=== PATIENT | male | born 1950 | race Caucasian/White ===

== ENCOUNTER → 2017-04-22 | Outpatient (CLI) | payer OTHER | LOC: CARD 12:07 | PROVIDERS: ATTEND Internal Medicine Cardiovascular Disease | DX: I49.5 Sick sinus syndrome (principal); I10 Essential (primary) hypertension; E11.9 Type 2 diabetes mellitus without complications; R55 Syncope and collapse | CPT/HCPCS: 93225; 93226 ==

== ENCOUNTER → 2017-07-01 | Outpatient (CLI) | payer OTHER | LOC: CARD 12:23 → EDUNIT# 14:00 | PROVIDERS: ATTEND Internal Medicine Cardiovascular Disease | DX: R00.1 Bradycardia, unspecified (principal); I10 Essential (primary) hypertension; I49.5 Sick sinus syndrome; R55 Syncope and collapse; E11.9 Type 2 diabetes mellitus without complications; Z79.4 Long term (current) use of insulin | CPT/HCPCS: 93017; 93306 ==

== ENCOUNTER → 2017-08-12 | Outpatient (CLI) | payer OTHER ==
[~2017-08-12] VITALS: Ht 177.8 cm; Wt 83.9 kg
[~2017-08-12] MED LIST: CATHETER FLUSH 10 ML SYR IV PRN
[2017-08-12 13:39] VITALS: BP 141/69
[2017-08-12 13:43] VITALS: BP 159/46
[2017-08-12 13:47] VITALS: BP 191/55
[2017-08-12 13:49] VITALS: BP 200/51
[2017-08-12 13:51] VITALS: BP 170/67
[2017-08-12 13:56] VITALS: BP 141/87
--- NOTE | 2017-08-13 14:18 | STRESS TEST ---
DATE OF SERVICE: 08/12/2017 EXERCISE MYOVIEW STRESS TEST REFERRING PHYSICIAN: None. Baseline heart rate is 63. Baseline blood pressure 159/46. Baseline EKG is sinus rhythm with no ischemic changes. In summary, the patient started exercising with a baseline heart rate, blood pressure and EKG mentioned above. At minute 5, he was injected with 30.2 mCi of technetium-99 Myoview. The patient had [address] depression in II, III, aVF, V4, V5 and V6. He was able to exercise for a total of 6 minutes on standard Yoan protocol. With peak exercise level, the patient was having [address] depression in lead 3 and AVF, slightly upsloping in lead 2, [address] depression in V3, V4, V5 and V6. Blood pressure was 191/55. During recovery, heart rate and blood pressure returned to baseline. EKG returned to baseline. The resting and stress images were reviewed and compared in the short axis, horizontal long axis, and vertical long axis views. Review of the images showed diaphragmatic attenuation with mild decreased uptake at the mid to apical inferior wall and inferolateral wall with subtle reversibility. SSS is 4, SDS zero. TID value 0.84. On the gated images, the left ventricle appeared to be normal in size with normal contractility. Calculated ejection fraction 63%. CONCLUSION: 1. Fair exercise tolerance a total of 6 minutes on standard Yoan protocol, a total of 7.1 METS achieving 88% of maximum expected heart rate. 2. Severe hypertensive response to exercise, returned to baseline. During recovery achieved maximum blood pressure of 200/51. 3. Positive exercise stress test by EKG findings suggestive of ischemia. 4. Diaphragmatic attenuation with nondiagnostic SPECT images with decreased uptake involving the mid to apical inferior wall and inferolateral wall with subtle reversibility. 5. Normal left ventricular size with normal contractility. Calculated ejection fraction 63%. Job ID: [id number] DocumentID: [id number] Dictated Date: 08/13/2017 08:01:58 Paralegal Supervisor Date: 08/13/2017 10:41:31 Dictated By: MIKE DORANTES MD
== END ==
LOC: RAD 11:39
PROVIDERS: ATTEND Physician Assistant
DX: I10 Essential (primary) hypertension (principal); E11.9 Type 2 diabetes mellitus without complications; I49.5 Sick sinus syndrome; R55 Syncope and collapse
CPT/HCPCS: 78452; 93017

== ENCOUNTER 2022-08-16 16:19 | Inpatient (IN) | payer OTHER, MEDICARE ==
[~2022-08-16] VITALS: Ht 182 cm; Wt 87.2 kg
--- NOTE | 2022-08-16 16:44 | ED General ---
General Chief Complaint: Glucose Problems Stated Complaint: HIGH BLOOD SUGAR/WEAKNESS Nursing Triage Note: ARRIVED VIA AMB TO TRIAGE WITH HIGH BLOOD SUGARS AND VOMITING. HAS BEEN OUT OF HIS INSULIN X2 DAYS. Source of Information: Patient, Family Exam Limitations: No Limitations History of Present Illness Date Seen by Provider: Aug 16, 2022 Time Seen by Provider: 16:23 Initial Comments Patient to the ER by private conveyance with his and chief complaint of high blood sugar for the past 1 day, nausea vomiting dehydration for the past 2 days. He thinks he has flu. He says he does not normally have vomiting. He is never been in DKA. He is a diabetic type II on Novolin 20 units with meals and Levemir 20 units at night. [facility] but apparently they sent it to the pharmacy to be picked up in [place] so he still does not have it. He has a family member who has diabetes so he used some of their NovoLog 30 units initially followed by 50 units before coming in and stated that it read 599 on their last use. Nursing reports in the high 500s. He is urinating frequently. He has not had any fevers chills. He has not had any chest pain but he does report having muscle aches and reflux and sore throat from all the vomiting. He has a pertinent history of coronary artery disease with LAD stent by [facility] in [place]. He follows with the [facility] for primary care. His last hemoglobin A1c was around 7. No history of kidney disease. Allergies and Home Medications Allergies Coded Allergies: Penicillins (Unverified Allergy, Unknown, 08/12/17) acetaminophen (Unverified Allergy, Unknown, 08/12/17) oxycodone (Unverified Allergy, Unknown, 08/12/17) Patient Home Medication List Home Medication List Reviewed: Yes Review of Systems Review of Systems Constitutional: No chills, No diaphoresis EENTM: No ear discharge, No ear pain Respiratory: No cough, No short of breath Cardiovascular: No chest pain, No edema; Hx of Intervention; No palpitations, No syncope Gastrointestinal: No abdominal pain, No diarrhea, No loss of appetite, No melena; nausea, vomiting Genitourinary: No discharge, No dysuria Musculoskeletal: No back pain, No joint pain All Other Systems Reviewed Negative Unless Noted: Yes Past Hamhhga-Qxlarz-Gnmgey Hx Patient Social History Tobacco Use?: No Substance use?: No Alcohol Use?: No Immunizations Up To Date First/Initial COVID19 Vaccinat: UNKNOWN Physical Exam Vital Signs Vital Signs - First Documented 08/16/22 16:30 Temp 37.0 Pulse 110 Resp 16 B/P (MAP) 102/64 (77) Pulse Ox 96 O2 Delivery Room Air Capillary Refill : Less Than 3 Seconds Height, Weight, BMI Height: 5'10.00" Weight: 185lbs. 0.0oz. 83.806778bo; 23.00 BMI Method: General Appearance: No Apparent Distress, Mild Distress Eyes: Bilateral Eye Normal Inspection, Bilateral Eye PERRL, Bilateral Eye EOMI HEENT: PERRL/EOMI, TMs Normal, Normal ENT Inspection, Pharynx Normal, Moist Mucous Membranes Neck: Full Range of Motion, Normal Inspection, Non Tender, Supple Respiratory: Lungs Clear, Normal Breath Sounds, No Accessory Muscle Use, No Respiratory Distress Cardiovascular: Regular Rate, Rhythm, No Edema, Normal Peripheral Pulses Gastrointestinal: Normal Bowel Sounds, Non Tender, Soft Extremity: Normal Capillary Refill, Normal Inspection, No Pedal Edema Neurologic/Psychiatric: Alert, Oriented x3, No Motor/Sensory Deficits, Normal 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, 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 Norm as Tested Skin: Normal Color, Warm/Dry Progress/Results/Core Measures Suspected Sepsis SIRS Temperature: Pulse: 110 Respiratory Rate: 16 Laboratory Tests 08/16/22 16:35: White Blood Count 23.9H Blood Pressure 102 /64 Mean: 77 Laboratory Tests 08/16/22 16:35: Creatinine 3.01H, INR Comment 1.0, Platelet Count 435H, Total Bilirubin 0.5 Results/Orders Lab Results Laboratory Tests Test 08/16/22 16:28 08/16/22 16:30 08/16/22 16:35 Range/Units Glucometer 562 *H 70-110 MG/DL Influenza Type A (RT-PCR) Not Detected Not Detecte Influenza Type B (RT-PCR) Not Detected Not Detecte SARS-CoV-2 RNA (RT-PCR) Not Detected Not Detecte White Blood Count 23.9 H 4.3-11.0 10^3/uL Red Blood Count 5.17 4.30-5.52 10^6/uL Hemoglobin 15.3 13.3-17.7 g/dL Hematocrit 46 40-54 % Mean Corpuscular Volume 88 80-99 fL Mean Corpuscular Hemoglobin 30 25-34 pg Mean Corpuscular Hemoglobin Concent 34 32-36 g/dL Red Cell Distribution Width 13.2 10.0-14.5 % Platelet Count 435 H 130-400 10^3/uL Mean Platelet Volume 9.0 9.0-12.2 fL Immature Granulocyte % (Auto) 1 % Neutrophils (%) (Auto) 87 H 42-75 % Lymphocytes (%) (Auto) 4 L 12-44 % Monocytes (%) (Auto) 8 0-12 % Eosinophils (%) (Auto) 0 0-10 % Basophils (%) (Auto) 0 0-10 % Neutrophils # (Auto) 20.8 H 1.8-7.8 10^3/uL Lymphocytes # (Auto) 0.9 L 1.0-4.0 10^3/uL Monocytes # (Auto) 1.9 H 0.0-1.0 10^3/uL Eosinophils # (Auto) 0.0 0.0-0.3 10^3/uL Basophils # (Auto) 0.1 0.0-0.1 10^3/uL Immature Granulocyte # (Auto) 0.2 H 0.0-0.1 10^3/uL Neutrophils % (Manual) 90 % Lymphocytes % (Manual) 2 % Monocytes % (Manual) 5 % Reactive Lymphocytes 3 % Blood Morphology Comment NORMAL Prothrombin Time 13.0 12.2-14.7 SEC INR Comment 1.0 0.8-1.4 Activated Partial Thromboplast Time 34 24-35 SEC Sodium Level 137 135-145 MMOL/L Potassium Level 3.9 3.6-5.0 MMOL/L Chloride Level 103 98-107 MMOL/L Carbon Dioxide Level 18 L 21-32 MMOL/L Anion Gap 16 H 5-14 MMOL/L Blood Urea Nitrogen 61 H 7-18 MG/DL Creatinine 3.01 H 0.60-1.30 MG/DL Estimat Glomerular Filtration Rate 22 BUN/Creatinine Ratio 20 Glucose Level 678 *H 70-105 MG/DL Calcium Level 10.1 8.5-10.1 MG/DL Corrected Calcium 9.8 8.5-10.1 MG/DL Magnesium Level 3.3 H 1.6-2.4 MG/DL Total Bilirubin 0.5 0.1-1.0 MG/DL Aspartate Amino Transf (AST/SGOT) 53 H 5-34 U/L Alanine Aminotransferase (ALT/SGPT) 31 0-55 U/L Alkaline Phosphatase 119 40-136 U/L Troponin I 9.664 *H <0.028 NG/ML C-Reactive Protein High Sensitivity 10.66 H 0.00-0.50 MG/DL Total Protein 7.6 6.4-8.2 GM/DL Albumin 4.4 3.2-4.5 GM/DL Beta-Hydroxybutyrate (Chem panel) 1.25 H 0.00-0.27 MMOL/L My Orders Orders - RAUL WHITE Accucheck Stat ONCE (08/16/22 16:28) Ua Culture If Indicated (08/16/22 16:28) Continuous Ekg Monitoring (08/16/22 16:41) Troponin I Kidder (08/16/22 16:41) Cbc With Automated Diff (08/16/22 16:41) Comprehensive Metabolic Panel (08/16/22 16:41) Hs C Reactive Protein (08/16/22 16:41) Magnesium (08/16/22 16:41) Ed Iv/Invasive Line Start (08/16/22 16:41) Ns Iv 1000 Ml (Sodium Chloride 0.9%) (08/16/22 16:45) Pantoprazole Injection (Protonix Injecti (08/16/22 16:45) Ondansetron Injection (Zofran Injectio (08/16/22 16:45) Covid 19 Inhouse Test (08/16/22 16:45) Influenza A And B By Pcr (08/16/22 16:45) Aspirin Chewable Tablet (Baby Aspirin Ch (08/16/22 16:45) Manual Differential (08/16/22 16:35) Beta Hydroxybutyrate (08/16/22 16:49) Ed Iv/Invasive Line Start (08/16/22 17:10) Ns Iv 1000 Ml (Sodium Chloride 0.9%) (08/16/22 17:15) Continuous Ekg Monitoring (08/16/22 17:27) Ekg Tracing (08/16/22 17:27) Chest 1 View, Ap/Pa Only (08/16/22 17:40) Heparin Drip 62884 Unit/500ml (Heparin (08/16/22 17:45) Heparin (Bolus Per Protocol) (Heparin (B (08/16/22 17:45) Initiate Heparin Acs Protocol (08/16/22 17:40) Medications Given in ED Current Medications Medications Dose Ordered Sig/Jeanette Route Start Time Stop Time Status Last Admin Dose Admin Aspirin 324 mg ONCE ONCE PO 08/16/22 16:45 08/16/22 16:48 DC 08/16/22 16:56 324 MG Heparin Sodium (Porcine) ACS PROTOCOL 60 uni... PRN PRN IV 08/16/22 17:45 08/16/22 22:01 DC 08/16/22 18:00 4,680 UNIT Ondansetron HCl 8 mg ONCE ONCE IVP 08/16/22 16:45 08/16/22 16:47 DC 08/16/22 16:56 8 MG Pantoprazole 40 mg ONCE ONCE IV 08/16/22 16:45 08/16/22 16:47 DC 08/16/22 16:55 40 MG Vital Signs/I&O 08/16/22 16:30 Temp 37.0 Pulse 110 Resp 16 B/P (MAP) 102/64 (77) Pulse Ox 96 O2 Delivery Room Air Capillary Refill : Less Than 3 Seconds Blood Pressure Mean: 77 Point of Care Testing Finger Stick Blood Glucose: 562 Progress Note : Time: 16:48 Progress Note Urine looking for ketones, labs, a liter of fluids. He has had a total of 80 units of NovoLog in the past couple hours so we will hold off on insulin. We will check electrolytes get an EKG given some aspirin since he is not on his Plavix due to vomiting and look for DKA versus HHS, etc. Ondansetron and Karyn nix for his nausea and GERD. ECG Initial ECG Impression Date: Aug 16, 2022 Initial ECG Impression Time: 17:21 Initial ECG Rate: 88 Initial ECG Rhythm: Normal Sinus Initial ECG Intervals: QT (501) Initial ECG Impression: Nonspecific Changes Initial ECG Comparisson: No Previous ECG Available Comment Half block ST depression and leads II, III and aVF. Half block ST elevation in lead V1. Half a block ST depression in lateral leads V4, V5 and V6. No cl inically relevant ST elevation or depression. Sinus rhythm. Diagnostic Imaging Diagonstic Imaging: Xray Plain Films/CT/US/NM/MRI: chest Comments [facility]. [place], [place] NAME: GEOVANNY RIVERS [facility] REC#: [id number] PT STATUS: ADM IN : 1950 PHYSICIAN: RAUL WHITE MD ADMIT DATE: 08/16/22/ICU Signed Date of Exam:08/16/22 CHEST 1 VIEW, AP/PA ONLY EXAM: Chest 1 view, AP/PA only. INDICATION: Chest pain. Nausea and vomiting. COMPARISON: None. FINDINGS: Normal heart size and central pulmonary vascularity. No focal pulmonary opacity. No pleural effusion or pneumothorax. No acute osseous finding. IMPRESSION: No acute cardiopulmonary finding. Dictated by: Dictated on workstation # [id number] Dict: 08/16/221806 Trans: 08/16/222052 PJE [id number] Interpreted by: MARIA GUADALUPE WASHINGTON MD Electronically signed by: MARIA GUADALUPE WASHINGTON MD 08/16/222052 Reviewed: Reviewed by Me Departure Communication (Admissions) Time/Spoke to Admitting Phy: 17:45 Discussed the case with Dr. Fine who agrees to admit the patient to the ICU on a heparin drip, delta troponins and cardiac consultation. Time/Spoke to Consulting Phy: 17:37 Discussed the case with Dr. Person who agrees to consult on the case. He has concerns with his high creatinine that cardiac catheterization could worsen his creatinine and he may need dialysis. At this time he would put the patient on heparin, aspirin and give his consult. 1755: Discussed the case with eICU and they agreed to consult on the case. Impression Primary Impression: DKA (diabetic ketoacidosis) Qualified Codes: E13.10 - Other specified diabetes mellitus with ketoacidosis without coma Additional Impressions: NSTEMI (non-ST elevated myocardial infarction) Acute kidney injury (nontraumatic) Disposition: ADMITTED INPATIENT Condition: Stable Admissions Decision to Admit Reason: Admit from ER (General) Decision to Admit/Date: Aug 16, 2022 Time/Decision to Admit Time: 17:29 Departure-Patient Inst. Referrals: NO,LOCAL PHYSICIAN (PCP/Family) Primary Care Physician RAUL WHITE Aug 16, 2022 16:44
[2022-08-16] MEDS ORDERED: PANTOPRAZOLE 40 MG (PROTONIX) VIAL IV ONE (16:45)
[2022-08-16] MEDS ORDERED: ONDANSETRON 4 MG/2 ML (SDV) Z0FRAN IVP ONE (16:45)
[2022-08-16] MEDS ORDERED: ASPIRIN 81 MG CHEW (CHILDREN'S ASA) PO ONE (16:45)
[2022-08-16] MEDS ORDERED: NS IV 1000 ML 1,000 ML IV SCH ×3 (16:45→18:30)
[2022-08-16 16:48] LABS: BASOPHILS # (AUTO) 0.1 10^3/uL (0.0-0.1); BASOPHILS % (AUTO) 0 % (0-10); EOSINOPHILS % (AUTO) 0 % (0-10); HEMATOCRIT 46 % (40-54); HEMOGLOBIN 15.3 g/dL (13.3-17.7); LYMPHOCYTES # (AUTO) 0.9 10^3/uL (1.0-4.0); LYMPHOCYTES % (AUTO) 4 % (12-44); MEAN CORPUSCULAR HEMOGLOBIN 30 pg (25-34); MEAN CORPUSCULAR HGB CONC 34 g/dL (32-36); MEAN CORPUSCULAR VOLUME 88 fL (80-99); MONOCYTES # (AUTO) 1.9 10^3/uL (0.0-1.0); MONOCYTES % (AUTO) 8 % (0-12); NEUTROPHILS # (AUTO) 20.8 10^3/uL (1.8-7.8); NEUTROPHILS % (AUTO) 87 % (42-75); PLATELET COUNT 435 10^3/uL (130-400); WHITE BLOOD COUNT 23.9 10^3/uL (4.3-11.0)
[2022-08-16 16:57] LABS: ALBUMIN 4.4 GM/DL (3.2-4.5); POTASSIUM 3.9 MMOL/L (3.6-5.0)
[2022-08-16 16:59] LABS: CALCIUM 10.1 MG/DL (8.5-10.1)
[2022-08-16 17:00] LABS: TOTAL PROTEIN 7.6 GM/DL (6.4-8.2)
[2022-08-16 17:02] LABS: BILIRUBIN,TOTAL 0.5 MG/DL (0.1-1.0)
[2022-08-16 17:04] LABS: CREATININE SERUM 3.01 MG/DL (0.60-1.30)
[2022-08-16 17:06] LABS: MAGNESIUM 3.3 MG/DL (1.6-2.4)
[2022-08-16 17:29] LABS: LYMPHOCYTES % (MANUAL) 2 %; MONOCYTES % (MANUAL) 5 %; NEUTROPHILS % (MANUAL) 90 %
[2022-08-16 17:30] LABS: RBC MORPH NORMAL; REACTIVE LYMPHOCYTES 3 %
[2022-08-16] MEDS ORDERED: HEParin 1000 UNIT/ML (10ML VIAL) FOR BOLUS IV PRN ×2 (17:45→18:30)
[2022-08-16] MEDS ORDERED: HEParin DRIP 25000 UNIT/500ML 500 ML IV SCH ×2 (17:45→22:15)
--- NOTE | 2022-08-16 18:12 | Diagnostic Imaging Report ---
EXAM: Chest 1 view, AP/PA only. INDICATION: Chest pain. Nausea and vomiting. COMPARISON: None. FINDINGS: Normal heart size and central pulmonary vascularity. No focal pulmonary opacity. No pleural effusion or pneumothorax. No acute osseous finding. IMPRESSION: No acute cardiopulmonary finding. Dictated by: Dictated on workstation # [id number]
[2022-08-16 18:15] LABS: BILIRUBIN,URINE NEGATIVE (NEGATIVE); CLARITY,URINE CLEAR; COLOR,URINE YELLOW; GLUCOSE, URINE (UA) 3+ (NEGATIVE); KETONES,URINE TRACE (NEGATIVE); LEUKOCYTE ESTERASE ,URINE NEGATIVE (NEGATIVE); NITRITE,URINE NEGATIVE (NEGATIVE); PROTEIN,URINE NEGATIVE (NEGATIVE)
[2022-08-16 18:28] LABS: BACTERIA,URINE TRACE /HPF; RBC,URINE RARE /HPF; SQUAMOUS EPITHELIAL CELL,UR RARE /HPF; WBC,URINE 0-2 /HPF
[2022-08-16] MEDS ORDERED: diphenhydrAMINE 25 MG TAB (BENADRYL) PO PRN (18:30)
[2022-08-16] MEDS ORDERED: LACTULOSE SYRUP 10GM/15ML (ENULOSE) 30ML UDC PO PRN (18:30)
[2022-08-16] MEDS ORDERED: CALCIUM CARBONATE 500 MG (TUMS) TAB.CHEW PO PRN (18:30)
[2022-08-16] MEDS ORDERED: BISACODYL 10 MG SUPP (DULCOLAX) PR PRN (18:30)
[2022-08-16] MEDS ORDERED: polyethylene glycoL POWDER 17 GM (MIRALAX) PACK PO PRN (18:30)
[2022-08-16] MEDS ORDERED: ONDANSETRON 4 MG/2 ML (SDV) Z0FRAN IV PRN (18:30)
[2022-08-16] MEDS ORDERED: ANTACID SUSP 30 ML UDC (MYLANTA) PO PRN (18:30)
[2022-08-16] MEDS ORDERED: MILK OF MAGNESIA 400 MG/5 ML 30 ML UDC PO PRN (18:30)
[2022-08-16] MEDS ORDERED: diphenhydrAMINE 50 MG/ML INJ (BENADRYL) IVP PRN (18:30)
[2022-08-16] MEDS ORDERED: ONDANSETRON 4 MG (ZOFRAN) ORAL DISSOLVE TAB PO PRN (18:30)
[2022-08-16] MEDS ORDERED: MELATONIN 3 MG TABLET PO PRN (18:30)
--- NOTE | 2022-08-16 18:50 | Tele-ICU Progress Note ---
Subjective Date Seen by a Provider: Aug 16, 2022 Time Seen by a Provider: 18:49 Subjective/Events-last exam (Tele-ICU Physician , consultation) Available chart/ vitals / labs / Images reviewed H&P is from ER notes Patient's information available about PMH, allergy reviewed in EMR. ROS as per chart and RN report Video assessment done using teleICU camera, rest of exam as per RN Discussed with RN. He is a 71-year-old male with past medical history of type 2 diabetes mellitus, coronary artery disease with LAD stenting apparently primarily get his medical care at [facility]. The apparently he did not get his insulin supply from the [facility] for the last 1 week and he administered his insulin dose for about a week. Now he presented to the emergency room with nausea vomiting for the last 2 days. He felt warm and he thought he may have a flu. In the emergency room he is found to have a diabetic ketoacidosis, acute renal failure and elevated troponin suggestive of non-STEMI. Currently he does not have any chest pain. He is admitted for further treatment and monitoring.Eda reviewed case with ER MD Review of Systems ROS PER RN Sepsis Event Evaluation Height, Weight, BMI Height: 5'10.00" Weight: 185lbs. 0.0oz. 83.741326yk; 23.00 BMI Method: Exam Exam Patient acknowledged, consented, and participated in this virtual visit which was conducted using real time audio/video Vital Signs Date Time Temp Pulse Resp B/P (MAP) Pulse Ox O2 Delivery O2 Flow Rate FiO2 08/16/22 16:30 37.0 110 16 102/64 (77) 96 Room Air Height & Weight Height: 5'10.00" Weight: 185lbs. 0.0oz. 83.174002sd; 23.00 BMI Method: General Appearance: No Apparent Distress, Mild Distress HEENT: PERRL/EOMI, TMs Normal, Normal ENT Inspection, Pharynx Normal, Moist Mucous Membranes Neck: Full Range of Motion, Normal Inspection, Non Tender, Supple Respiratory: Lungs Clear, Normal Breath Sounds, No Accessory Muscle Use, No Respiratory Distress Cardiovascular: Regular Rate, Rhythm, No Edema, Normal Peripheral Pulses Capillary Refill: Less Than 3 Seconds Extremity: Normal Capillary Refill, Normal Inspection, No Pedal Edema Neurologic/Psychiatric: Alert, Oriented x3, No Motor/Sensory Deficits, Normal 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 Diabetic ketoacidosis secondary to noncompliance with insulin 2. Acute kidney injury due to severe dehydration 3. Non-STEMI. Recommendations 1. Hydrate patient per protocol 2. IV insulin drip 3. IV heparin per cardiology 4. Cardiology consultation. 5. Continue monitor electrolytes BUN and creatinine closely Critical Care: Critically Ill Patient Time spent with patient (mins): 25 MORENA SEGOVIA MD Aug 16, 2022 18:50
[2022-08-16] MEDS ORDERED: 1/2 NS IV SOLUTION 1,000 ML IV ONE (18:57)
[2022-08-16] MEDS ORDERED: POTASSIUM CL 10MEQ/50ML IVPB 50 ML IV ONE (18:57)
[2022-08-16] MEDS: 1/2 NS IV SOLUTION 1,000 ML IV SCH ×2 (19:17→22:30)
[2022-08-16] MEDS: POTASSIUM CL 10MEQ/50ML IVPB 50 ML IV SCH ×3 (19:19→22:04)
[2022-08-16] MEDS ORDERED: D5 1/2 NS 1000 ML IV SOLUTION 1,000 ML IV ONE (20:00)
--- NOTE | 2022-08-16 20:05 | History & Physical-Hospitalist ---
History of Present Illness HPI/Chief Complaint Noé Gutiérrez is a 71 year old male with PMH HTN, T2DM on insulin, HLD, who presented with nausea and vomiting. He also felt dehydrated. He had been urinating frequently. He reports body aches. He thought he had the flu. He ran out of his short acting Novolog insulin about a week ago. He has still been taking his Levemir. He requested a refill from the [facility] and they were supposed to be mailing it, but it never came. He denies fevers and chills. He denies shortness of breath and cough. He denies chest pain and palpitations. He denies abdominal pain. He has never had DKA. He has been taking insulin for 25 years and has never ran out before. He normally takes his medicines as prescribed. He has had a heart attack before and had a stent placed several years ago. Source: patient, family Exam Limitations: no limitations Date Seen 08/16/22 Time Seen by a Provider: 19:00 Attending Physician No,Local Physician PCP Admitting Physician: Karrie Reyes MD Attending Physician: Karrie Reyes MD Referring Physician Date of Admission Aug 16, 2022 at 17:55 Home Medications & Allergies Home Medications Reviewed patient Home Medication Reconciliation performed by pharmacy medication reconciliations records technician and/or nursing. Patients Allergies have been reviewed. Allergies Allergies Coded Allergies Penicillins (Unverified Allergy, Unknown, 08/12/17) oxycodone (Verified Allergy, Unknown, Hives, 08/16/22) Patient states they can take acetaminophen. Past Zgzemkh-Lyhgbe-Mnljwq Hx Patient Social History Tobacco Use?: No Substance use?: No Alcohol Use?: No Immunizations Up To Date First/Initial COVID19 Vaccinat: UNKNOWN Current Status Advance Directives: No Primary Language: [place] Islander Preferred Spoken Language: [place]er Past Medical History Surgeries: Coronary Stent Coronary Artery Disease, High Cholesterol, Hypertension Family Medical History No Pertinent Family Hx Review of Systems Constitutional: weakness EENTM: no symptoms reported Respiratory: no symptoms reported Cardiovascular: no symptoms reported Gastrointestinal: no symptoms reported Genitourinary: frequency Physical Exam Physical Exam Vital Signs Vital Signs - First Documented 08/16/22 16:30 Temp 37.0 Pulse 110 Resp 16 B/P (MAP) 102/64 (77) Pulse Ox 96 O2 Delivery Room Air Capillary Refill : Less Than 3 Seconds Height, Weight, BMI Height: 5'10.00" Weight: 185lbs. 0.0oz. 83.233194ci; 23.00 BMI Method: General Appearance: No Apparent Distress, WD/WN HEENT: PERRL/EOMI, Pharynx Normal Neck: Normal Inspection, Supple Respiratory: Lungs Clear, No Respiratory Distress Cardiovascular: Regular Rate, Rhythm, No Murmur Gastrointestinal: Normal Bowel Sounds, Non Tender, Soft Extremity: Normal Inspection, No Pedal Edema Neurologic/Psychiatric: Alert, Oriented x3, No Motor/Sensory Deficits, Normal Mood/Affect Skin: Normal Color, Warm/Dry Results Results/Procedures Labs Laboratory Tests 08/16/22 02:42 08/16/22 16:35 08/16/22 19:53 08/16/22 21:28 08/17/22 04:40 08/17/22 07:42 Patient resulted labs reviewed. Imaging: Reviewed Imaging Report Assessment/Plan Admission Diagnosis DKA Admission Status: Inpatient Order (span 2 midnights) Reason for Inpatient Admission: DKA NSTEMI TIM Assessment and Plan DKA TIM NSTEMI DKA protocol IV insulin IV fluids TeleICU consulted Cardiology consulted ASA Heparin gtt Clear liquid diet Leukocytosis Likely reactive No evidence of infection Antibiotics not given Monitor symptoms HTN Hold Losartan CAD HLD Continue home meds DVT prophylaxis: already receiving therapeutic anticoagulation Critical Care Critically Ill Patient Diagnosis/Problems Diagnosis/Problems (1) DKA (diabetic ketoacidosis) Status: Acute Qualifiers: Diabetes mellitus type: type 2 Diabetes mellitus complication detail: without coma Qualified Codes: E11.10 - Type 2 diabetes mellitus with ketoacidosis without coma (2) Acute kidney injury (nontraumatic) Status: Acute (3) NSTEMI (non-ST elevated myocardial infarction) Status: Acute (4) High anion gap metabolic acidosis Status: Acute (5) Leukocytosis Status: Acute Qualifiers: Leukocytosis type: leukemoid reaction Qualified Codes: D72.823 - Leukemoid reaction (6) HTN (hypertension) Status: Chronic (7) HLD (hyperlipidemia) Status: Chronic (8) CAD (coronary artery disease) Status: Chronic (9) T2DM (type 2 diabetes mellitus) Status: Acute Qualifiers: Diabetes mellitus mcc insulin use: with oysterman use Diabetes mellitus complication status: with ketoacidosis Diabetes mellitus complication detail: without coma Qualified Codes: E11.10 - Type 2 diabetes mellitus with ketoacidosis without coma; Z79.4 - oysterman (current) use of insulin KARRIE REYES MD Aug 16, 2022 20:05
[2022-08-16] MEDS ORDERED: NS IV 1000 ML 1,000 ML ONE (20:09)
[2022-08-16] MEDS: D5 1/2 NS 1000 ML IV SOLUTION 1,000 ML IV SCH (20:12)
[2022-08-16 20:32] LABS: CALCIUM 6.7 MG/DL (8.5-10.1); CREATININE SERUM 1.64 MG/DL (0.60-1.30)
[2022-08-16 20:52] LABS: POTASSIUM 7.9 MMOL/L (3.6-5.0)
[2022-08-16] MEDS: SENNOSIDES 8.6 MG (SENOKOT) TAB PO SCH (21:00)
[2022-08-16] MEDS: DOCUSATE SODIUM 100 MG (COLACE) CAP PO SCH (21:00)
--- NOTE | 2022-08-16 21:07 | Progress Note ---
Standard Progress Note Progress Notes/Assess & Plan Date Seen by a Provider: Aug 16, 2022 Time Seen by a Provider: 21:05 Progress/Assessment & Plan Potassium came back 7.9, last one 3 hours before 3.9, no EKG changes, probably lab error, will repeat MD MAIDA Jaeger JOSEPH K MD Aug 16, 2022 21:07
[2022-08-16 21:44] LABS: POTASSIUM 3.7 MMOL/L (3.6-5.0)
[2022-08-16] MEDS ORDERED: NITROGLYCERIN 0.4 MG SL TABS BTL 25'S SL PRN (21:45)
[2022-08-16 21:46] LABS: CALCIUM 8.4 MG/DL (8.5-10.1)
[2022-08-16 21:50] LABS: CREATININE SERUM 2.19 MG/DL (0.60-1.30)
[2022-08-16] MEDS ORDERED: ACETAMINOPHEN 325 MG TABLET PO PRN (22:15)
[2022-08-16] MEDS ORDERED: ACETAMINOPHEN 650 MG SUPP (TYLENOL) PR PRN (22:15)
[2022-08-17] MEDS: POTASSIUM CL 10MEQ/50ML IVPB 50 ML IV SCH ×8 (00:06→20:56)
[2022-08-17] MEDS: D5 1/2 NS 1000 ML IV SOLUTION 1,000 ML IV SCH ×5 (00:07→22:46)
[2022-08-17] MEDS: 1/2 NS IV SOLUTION 1,000 ML IV SCH ×6 (02:30→22:30)
[2022-08-17 03:28] LABS: POTASSIUM 3.6 MMOL/L (3.6-5.0)
[2022-08-17 03:29] LABS: CALCIUM 8.3 MG/DL (8.5-10.1)
[2022-08-17 03:34] LABS: CREATININE SERUM 1.77 MG/DL (0.60-1.30)
[2022-08-17 05:38] LABS: BASOPHILS # (AUTO) 0.1 10^3/uL (0.0-0.1); BASOPHILS % (AUTO) 0 % (0-10); EOSINOPHILS % (AUTO) 0 % (0-10); HEMATOCRIT 39 % (40-54); LYMPHOCYTES # (AUTO) 1.2 10^3/uL (1.0-4.0); LYMPHOCYTES % (AUTO) 5 % (12-44); MEAN CORPUSCULAR HEMOGLOBIN 29 pg (25-34); MEAN CORPUSCULAR HGB CONC 33 g/dL (32-36); MEAN CORPUSCULAR VOLUME 89 fL (80-99); MEAN PLATELET VOLUME 8.9 fL (9.0-12.2); MONOCYTES # (AUTO) 1.2 10^3/uL (0.0-1.0); MONOCYTES % (AUTO) 5 % (0-12); NEUTROPHILS % (AUTO) 89 % (42-75); PLATELET COUNT 314 10^3/uL (130-400); WHITE BLOOD COUNT 22.6 10^3/uL (4.3-11.0)
[2022-08-17] MEDS: ASPIRIN E.C. 81 MG (ECOTRIN) TAB PO SCH (08:02)
[2022-08-17] MEDS: SENNOSIDES 8.6 MG (SENOKOT) TAB PO SCH ×2 (08:03→21:00)
[2022-08-17] MEDS: DOCUSATE SODIUM 100 MG (COLACE) CAP PO SCH ×2 (08:03→21:00)
[2022-08-17 08:08] LABS: CALCIUM 8.1 MG/DL (8.5-10.1); CREATININE SERUM 1.61 MG/DL (0.60-1.30); POTASSIUM 4.1 MMOL/L (3.6-5.0)
[2022-08-17] MEDS ORDERED: HEParin (CATH LAB) 2,000 ML IV ONE (09:24)
[2022-08-17] MEDS ORDERED: NS IV 1000 ML 1,000 ML ONE (09:24)
[2022-08-17] MEDS ORDERED: LIDOCAINE 1% INJ 30 ML (XYLOCAINE) VIAL ONE (09:24)
[2022-08-17] MEDS ORDERED: MIDAZOLAM 2 MG/2 ML (VERSED) VIAL ONE (09:24)
[2022-08-17] MEDS ORDERED: fentaNYL INJ 100 MCG/2 ML AMP ONE (09:24)
--- NOTE | 2022-08-17 09:24 | Tele-ICU Progress Note ---
Subjective Date Seen by a Provider: Aug 17, 2022 Subjective/Events-last exam This virtual visit was conducted using real time audio/video. Thank you for asking us to see this patient admitted for DKA, TIM, NSTEMI Recent events: PE: Comfortable on camera. VSS. O2 sat 94% on RA HEENT: No obvious masses, adenopathy or JVD. Chest: clear to auscultation. CV: RRR S1 S2 No murmur or added sounds. Abd: Non-tender. Bowel sounds Y. : Unremarkable. 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 No obvious focal findings. Extremities: No edema. Capillary refill < 3 seconds. Skin: unremarkable. Results: Elevated WCC 22.6, BUN 37, BG 229, Creat 1.61, Trop 6.122. Decreased Hb 13.0. CXR: Hyperinflated, clear. Available chart/ vitals / labs / images reviewed. Video assessment done using teleICU camera, rest of exam as per RN. A/P: Critical Care: critically ill patient. Cont. IV insulin, heparin. Cont ASA,PRN NTG. To go to cath. lab today. Discussed with BAHMAN Brower. Asked RN to reach out to eICU if any questions or dorie rns later. Time spent with patient/coordination of care with other health professionals (mins): 20 Sepsis Event Evaluation Height, Weight, BMI Height: 5'10.00" Weight: 185lbs. 0.0oz. 83.918143bk; 25.99 BMI Method: Exam Exam Patient acknowledged, consented, and participated in this virtual visit which was conducted using real time audio/video Vital Signs Date Time Temp Pulse Resp B/P (MAP) Pulse Ox O2 Delivery O2 Flow Rate FiO2 08/17/22 08:00 85 10 134/74 (94) 94 Room Air 08/17/22 07:53 37.2 08/17/22 07:32 94 Room Air 08/17/22 07:00 87 08/17/22 07:00 92 13 127/69 (88) 94 Room Air 08/17/22 06:00 78 19 120/69 (86) 95 Room Air 08/17/22 05:00 87 15 115/70 (85) 95 Room Air 08/17/22 04:00 76 15 109/69 (82) 96 Room Air 08/17/22 04:00 94 Room Air 08/17/22 03:00 80 14 96/60 (72) 94 Room Air 08/17/22 02:00 92 15 94/42 (59) 96 Room Air 08/17/22 01:00 79 15 102/60 (74) 94 Room Air 08/17/22 01:00 80 08/17/22 00:00 84 16 103/56 (72) 93 Room Air 08/16/22 23:59 95 Room Air 08/16/22 23:00 92 14 103/62 (76) 93 Room Air 08/16/22 22:00 92 12 99/57 (71) 93 Room Air 08/16/22 21:00 92 23 111/57 (75) 95 Room Air 08/16/22 20:00 36.2 08/16/22 20:00 95 15 110/57 (74) 97 Room Air 08/16/22 19:00 93 08/16/22 19:00 92 18 117/64 (81) 96 Room Air 08/16/22 18:50 Room Air 08/16/22 18:45 37.0 90 18 111/69 Room Air 08/16/22 16:30 37.0 110 16 102/64 (77) 96 Room Air I & O 08/17/22 07:00 Intake Total 4925 ml Output Total 250 ml Balance 4675 ml Height & Weight Height: 5'10.00" Weight: 185lbs. 0.0oz. 83.291087mv; 25.99 BMI Method: General Appearance: No Apparent Distress, Mild Distress HEENT: PERRL/EOMI, TMs Normal, Normal ENT Inspection, Pharynx Normal, Moist Mu cous Membranes Neck: Full Range of Motion, Normal Inspection, Non Tender, Supple Respiratory: Lungs Clear, Normal Breath Sounds, No Accessory Muscle Use, No Respiratory Distress Cardiovascular: Regular Rate, Rhythm, No Edema, Normal Peripheral Pulses Capillary Refill: Less Than 3 Seconds Extremity: Normal Capillary Refill, Normal Inspection, No Pedal Edema Neurologic/Psychiatric: Alert, Oriented x3, No Motor/Sensory Deficits, Normal Mood/Affect, 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 Critical Care: Critically Ill Patient NANY BOATENG MD Aug 17, 2022 09:24
--- NOTE | 2022-08-17 09:27 | Consultation-Cardiology ---
HPI-Cardiology Cardiology Consultation Date of Consultation 08/17/22 Date of Admission Time Seen by Provider: 09:24 Indication: Acute myocardial infarction HPI 71 years old gentleman with a history of coronary artery disease, stent to the LAD done 4 to 5 years ago, hypertension, hyperlipidemia and diabetes mellitus. Patient ran out of his insulin for the past week and has been having increasing blood sugar, [facility] [place] [facility]. Started to have nausea and vomiting, reported that he had pressure in his chest after the vomiting and thought it was heartburn. Patient came into the emergency room and he was in DKA. He had elevated troponin of 9. Minimal nondiagnostic EKG changes. On my evaluation he was feeling better, no nausea or vomiting, no chest pain was reported. No shortness of breath. Reported that he did not have chest pain with his previous heart attack about 4 to 5 years ago. Home Medications & Allergies Allergies: Coded Allergies: Penicillins (Unverified Allergy, Unknown, 08/12/17) oxycodone (Verified Allergy, Unknown, Hives, 08/16/22) Patient states they can take acetaminophen. Home Medication List Reviewed: Yes JAG-Alvgon-Chqdyw Hx Patient Social History Marital Status: Employed/Student: retired Have you traveled recently?: No Alcohol Use?: No Past Medical History Discussed below Family Medical History Significant Family History: No Pertinent Family Hx Family Medical Hx Noncontributory Review of Systems-General Review of Systems Constitutional: see HPI; No chills, No diaphoresis; malaise EENTM: No ear discharge, No ear pain Respiratory: No no symptoms reported; see HPI; No cough, No dyspnea on exertion, No hemoptysis, No orthopnea, No phlegm, No short of breath, No stridor, No wheezing, No other Cardiovascular: see HPI, chest pain; No edema; Hx of Intervention; No palpitations, No syncope Gastrointestinal: see HPI; No abdominal pain, No diarrhea, No loss of appetite, No melena; nausea, vomiting Genitourinary: see HPI; No discharge, No dysuria Musculoskeletal: see HPI; No back pain, No joint pain Skin: no symptoms reported, see HPI Psychiatric/Neurological: No Symptoms Reported, See HPI All Other Systems Reviewed Negative Unless Noted: Yes Reviewed Test Results Reviewed Test Results Lab Laboratory Tests Test 08/16/22 16:28 08/16/22 16:30 08/16/22 16:35 08/16/22 18:05 Range/Units Glucometer 562 *H 70-110 MG/DL Influenza Type A (RT-PCR) Not Detected Not Detecte Influenza Type B (RT-PCR) Not Detected Not Detecte SARS-CoV-2 RNA (RT-PCR) Not Detected Not Detecte White Blood Count 23.9 H 4.3-11.0 10^3/uL Red Blood Count 5.17 4.30-5.52 10^6/uL Hemoglobin 15.3 13.3-17.7 g/dL Hematocrit 46 40-54 % Mean Corpuscular Volume 88 80-99 fL Mean Corpuscular Hemoglobin 30 25-34 pg Mean Corpuscular Hemoglobin Concent 34 32-36 g/dL Red Cell Distribution Width 13.2 10.0-14.5 % Platelet Count 435 H 130-400 10^3/uL Mean Platelet Volume 9.0 9.0-12.2 fL Immature Granulocyte % (Auto) 1 % Neutrophils (%) (Auto) 87 H 42-75 % Lymphocytes (%) (Auto) 4 L 12-44 % Monocytes (%) (Auto) 8 0-12 % Eosinophils (%) (Auto) 0 0-10 % Basophils (%) (Auto) 0 0-10 % Neutrophils # (Auto) 20.8 H 1.8-7.8 10^3/uL Lymphocytes # (Auto) 0.9 L 1.0-4.0 10^3/uL Monocytes # (Auto) 1.9 H 0.0-1.0 10^3/uL Eosinophils # (Auto) 0.0 0.0-0.3 10^3/uL Basophils # (Auto) 0.1 0.0-0.1 10^3/uL Immature Granulocyte # (Auto) 0.2 H 0.0-0.1 10^3/uL Neutrophils % (Manual) 90 % Lymphocytes % (Manual) 2 % Monocytes % (Manual) 5 % Reactive Lymphocytes 3 % Blood Morphology Comment NORMAL Prothrombin Time 13.0 12.2-14.7 SEC INR Comment 1.0 0.8-1.4 Activated Partial Thromboplast Time 34 24-35 SEC Sodium Level 137 135-145 MMOL/L Potassium Level 3.9 3.6-5.0 MMOL/L Chloride Level 103 98-107 MMOL/L Carbon Dioxide Level 18 L 21-32 MMOL/L Anion Gap 16 H 5-14 MMOL/L Blood Urea Nitrogen 61 H 7-18 MG/DL Creatinine 3.01 H 0.60-1.30 MG/DL Estimat Glomerular Filtration Rate 22 BUN/Creatinine Ratio 20 Glucose Level 678 *H 70-105 MG/DL Calcium Level 10.1 8.5-10.1 MG/DL Corrected Calcium 9.8 8.5-10.1 MG/DL Magnesium Level 3.3 H 1.6-2.4 MG/DL Total Bilirubin 0.5 0.1-1.0 MG/DL Aspartate Amino Transf (AST/SGOT) 53 H 5-34 U/L Alanine Aminotransferase (ALT/SGPT) 31 0-55 U/L Alkaline Phosphatase 119 40-136 U/L Troponin I 9.664 *H <0.028 NG/ML C-Reactive Protein High Sensitivity 10.66 H 0.00-0.50 MG/DL Total Protein 7.6 6.4-8.2 GM/DL Albumin 4.4 3.2-4.5 GM/DL Beta-Hydroxybutyrate (Chem panel) 1.25 H 0.00-0.27 MMOL/L Urine Color YELLOW Urine Clarity CLEAR Urine pH 5.0 5-9 Urine Specific [place] 1.020 1.016-1.022 Urine Protein NEGATIVE NEGATIVE Urine Glucose (UA) 3+ H NEGATIVE Urine Ketones TRACE H NEGATIVE Urine Nitrite NEGATIVE NEGATIVE Urine Bilirubin NEGATIVE NEGATIVE Urine Urobilinogen 0.2 < = 1.0 MG/DL Urine Leukocyte Esterase NEGATIVE NEGATIVE Urine RBC (Auto) 2+ H NEGATIVE Urine RBC RARE /HPF Urine WBC 0-2 /HPF Urine Squamous Epithelial Cells RARE /HPF Urine Crystals NONE /LPF Urine Bacteria TRACE /HPF Urine Casts PRESENT /LPF Urine Hyaline Casts 10-25 H /LPF Urine Mucus NEGATIVE /LPF Urine Culture Indicated NO Test 08/16/22 18:58 08/16/22 19:53 08/16/22 20:50 08/16/22 21:28 Range/Units Glucometer 383 H 243 H 70-110 MG/DL Activated Partial Thromboplast Time > 200 *H 24-35 SEC Sodium Level 126 L 141 135-145 MMOL/L Potassium Level 7.9 #*H 3.7 3.6-5.0 MMOL/L Chloride Level 105 113 H 98-107 MMOL/L Carbon Dioxide Level 14 L 19 L 21-32 MMOL/L Anion Gap 7 9 5-14 MMOL/L Blood Urea Nitrogen 44 H 54 H 7-18 MG/DL Creatinine 1.64 H 2.19 H 0.60-1.30 MG/DL Estimat Glomerular Filtration Rate 45 32 BUN/Creatinine Ratio 27 25 Glucose Level 246 H 258 H 70-105 MG/DL Calcium Level 6.7 L 8.4 L 8.5-10.1 MG/DL Troponin I 7.311 *H <0.028 NG/ML Test 08/16/22 21:52 08/16/22 22:44 08/17/22 00:02 08/17/22 01:03 Range/Units Glucometer 188 H 147 H 124 H 121 H 70-110 MG/DL Test 08/17/22 01:30 08/17/22 02:02 08/17/22 04:03 08/17/22 04:40 Range/Units Glucometer 119 H 115 H 112 H 70-110 MG/DL White Blood Count 22.6 H 4.3-11.0 10^3/uL Red Blood Count 4.42 4.30-5.52 10^6/uL Hemoglobin 13.0 L 13.3-17.7 g/dL Hematocrit 39 L 40-54 % Mean Corpuscular Volume 89 80-99 fL Mean Corpuscular Hemoglobin 29 25-34 pg Mean Corpuscular Hemoglobin Concent 33 32-36 g/dL Red Cell Distribution Width 13.4 10.0-14.5 % Platelet Count 314 130-400 10^3/uL Mean Platelet Volume 8.9 L 9.0-12.2 fL Immature Granulocyte % (Auto) 1 % Neutrophils (%) (Auto) 89 H 42-75 % Lymphocytes (%) (Auto) 5 L 12-44 % Monocytes (%) (Auto) 5 0-12 % Eosinophils (%) (Auto) 0 0-10 % Basophils (%) (Auto) 0 0-10 % Neutrophils # (Auto) 20.0 H 1.8-7.8 10^3/uL Lymphocytes # (Auto) 1.2 1.0-4.0 10^3/uL Monocytes # (Auto) 1.2 H 0.0-1.0 10^3/uL Eosinophils # (Auto) 0.0 0.0-0.3 10^3/uL Basophils # (Auto) 0.1 0.0-0.1 10^3/uL Immature Granulocyte # (Auto) 0.2 H 0.0-0.1 10^3/uL Activated Partial Thromboplast Time 55 H 24-35 SEC Troponin I 6.122 *H <0.028 NG/ML Test 08/17/22 05:00 08/17/22 06:01 08/17/22 06:54 08/17/22 07:42 Range/Units Glucometer 102 150 H 165 H 70-110 MG/DL Sodium Level 140 135-145 MMOL/L Potassium Level 4.1 3.6-5.0 MMOL/L Chloride Level 114 H 98-107 MMOL/L Carbon Dioxide Level 17 L 21-32 MMOL/L Anion Gap 9 5-14 MMOL/L Blood Urea Nitrogen 37 H 7-18 MG/DL Creatinine 1.61 H 0.60-1.30 MG/DL Estimat Glomerular Filtration Rate 46 BUN/Creatinine Ratio 23 Glucose Level 229 H 70-105 MG/DL Calcium Level 8.1 L 8.5-10.1 MG/DL Test 08/17/22 08:13 Range/Units Glucometer 205 H 70-110 MG/DL Physical Exam Physical Exam Vital Signs Vital Signs - First Documented 08/16/22 16:30 Temp 37.0 Pulse 110 Resp 16 B/P (MAP) 102/64 (77) Pulse Ox 96 O2 Delivery Room Air Capillary Refill : Less Than 3 Seconds Height, Weight, BMI Height: 5'10.00" Weight: 185lbs. 0.0oz. 83.645221uo; 25.99 BMI Method: General Appearance: No Apparent Distress, Mild Distress Eyes: Bilateral Eye Normal Inspection, Bilateral Eye PERRL, Bilateral Eye EOMI HEENT: PERRL/EOMI, TMs Normal, Normal ENT Inspection, Pharynx Normal, Moist Mucous Membranes Neck: Full Range of Motion, Normal Inspection, Non Tender, Supple Respiratory: Lungs Clear, Normal Breath Sounds, No Accessory Muscle Use, No Respiratory Distress Cardiovascular: Regular Rate, Rhythm, No Edema, Normal Peripheral Pulses Gastrointestinal: Normal Bowel Sounds, Non Tender, Soft Extremity: Normal Capillary Refill, Normal Inspection, No Pedal Edema Neurologic/Psychiatric: Alert, Oriented x3, No Motor/Sensory Deficits, Normal 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 Currently no active chest pain, I had a long discussion with the patient and his offered him cardiac catheterization, patient was hesitant at the beginning then after discussing with his he agreed on proceeding with the procedure. He is being maintained on aspirin and heparin. Coronary artery disease, history of Promus Premier stent 3.5 x 32 mm to the proximal LAD done 4 to 5 years ago. No recent cardiac work-up, planning to proceed with cardiac catheterization Diabetic ketoacidosis. Blood sugar is better. Managed by primary care team Hypertension, monitor blood pressure and restart home medication Hyperlipidemia, continue on statin Acute on chronic renal insufficiency, receiving IV fluids, continue to monitor renal function MIKE DORANTES MD Aug 17, 2022 09:27
--- NOTE | 2022-08-17 09:28 | Cardiac Procedure Note-CS/ASA ---
Pre-Procedure Note Pre-Op Procedure Note Date of Available H&P: Aug 17, 2022 Date H&P Reviewed: Aug 17, 2022 Time H&P Reviewed: History & Physical: H&P Reviewed, Patient Examed, No changes noted Pre-Operative Diagnosis: NSTMI Conscious Sedation Pre-Proced Time : ASA Score 3 For ASA 3 and 4: Consider anesthesia and medical clearance. Also, for patients with a history of failed moderate sedation consider anesthesia. Airway Lungs Heart ASA score ASA 1: a normal healthy patient ASA 2: a patient with a mild systemic disease (mid diabetes, controlled hypertension, obesity x ASA 3: a patient with a severe systemic disease that limits activity (angina, COPD, prior Myocardial infarction) ASA 4: a patient with an incapacitating disease that is a constant threat to life (CHF, renal failure) ASA 5: a moribund patient not expected to survive 24 hrs. (ruptured aneurysm) ASA 6: a declared brain- patient whose organs are being harvested. For emergent operations, add the letter E after the classification Mallampati Classification Grade 3 Sedation Plan Analgesia, Amnesia, Plan communicated to team members, Discussed options with patient/fam, Discussed risks with patient/fam The patient is an appropriate candidate to undergo the planned procedure, sedation, and anesthesia. The patient immediately re-assessed prior to indication. MIKE DORANTES MD Aug 17, 2022 09:28
[2022-08-17] MEDS ORDERED: VERAPAMIL 5 MG/2 ML (CALAN) VIAL IV ONE (09:30)
[2022-08-17] MEDS ORDERED: NITRO DRIP 25000 MCG/D5W 250 ML IV ONE (09:30)
[2022-08-17] MEDS ORDERED: HEParin 1000 UNIT/ML (10ML VIAL) FOR BOLUS ONE (09:30)
[2022-08-17] MEDS ORDERED: CLOPIDOGREL 75 MG (PLAVIX) TABLET PO ONE (09:30)
[2022-08-17] MEDS ORDERED: CLOPIDOGREL 75 MG (PLAVIX) TABLET ONE (10:01)
--- NOTE | 2022-08-17 10:38 | Cardiac Cath Report ---
Cardiac Cath Report Physician (s)/Business Intelligence Administrator (s) Physician MIKE DORANTES MD Pre-Procedure Diagnosis Pre-Procedure Diagnosis: NSTMI Post-Procedure Note Procedure Start Date: Aug 17, 2022 Name of Procedure: Left heart catheterization Findings/Procedure Note PROCEDURE NOTE: 71 years old gentleman with history of coronary artery disease stent to the proximal LAD admitted with DKA and had significant elevation in troponin, cardiac catheterization was advised. After explaining the procedure to the patient, all pros and cons were explained, all questions were answered. The patient signed the consent and then he was placed on the cardiac catheterization laboratory. Groin was prepped SL fashion local anesthesia was used. Sheath placed in the right radial artery, Winston catheter was advanced to the left ventricular cavity, pressure was measured, pullback LV to aorta was done, engage the right and left coronary system, multiple views were obtained. At the end of the procedure the sheath was removed. Vascular band was used FINDINGS: Hemodynamics LV 107/15, end-diastolic pressure of 15 Aorta 104/62 mean of 81 ANATOMY: Left Main is free of obstructive disease Left Anterior Descending has a patent stent in the proximal LAD, small vessel disease distally nonobstructive disease. Left Circumflex is moderate in size with no obstructive disease Right Coronary Artery is dominant artery with 40 to 50% stenosis in the proximal right coronary artery LV Gram was not done, pressure was measured CONCLUSION: 1. Patent stent in the proximal LAD with small vessel disease distally, otherwise mild coronary artery disease nonobstructive disease 2. Normal left ventricular end-diastolic pressure DISCUSSION AND RECOMMENDATION: Continue on aspirin and statin. No intervention is recommended Anesthesia Type: Conscious Sedation Estimated blood loss (mL): 10 ml Contrast Amount: 26 ml Total Radiation Dose: 269 mGy Post-Procedure Diagnosis Post-operative diagnosis: Non-ST elevation myocardial infarction Coronary artery disease Diabetic ketoacidosis Hyperlipidemia MIKE DORANTES MD Aug 17, 2022 10:38
[2022-08-17] MEDS ORDERED: NS IV 1000 ML 1,000 ML IV SCH (10:45)
--- NOTE | 2022-08-17 12:00 | Progress Note - Hospitalist ---
Subjective HPI/CC On Admission Date Seen by Provider: Aug 17, 2022 Time Seen by Provider: 11:15 Noé Gutiérrez is a 71 year old male with PMH HTN, T2DM on insulin, HLD, who presented with nausea and vomiting. He also felt dehydrated. He had been urinating frequently. He reports body aches. He thought he had the flu. He ran out of his short acting Novolog insulin about a week ago. He has still been taking his Levemir. He [place] a ref[place] from the [place] and [place] were supposed to be mailing it, but it never came. He denies fevers and chills. He denies shortness of breath and cough. He denies chest pain and palpitations. He denies abdominal pain. He has never had DKA. He has been taking insulin for 25 years and has never ran out before. He normally takes his medicines as prescribed. He has had a heart attack before and had a stent placed several years ago. Subjective/Events-last exam He is feeling better. He is a little groggy since he just got back from his heart cath. He denies pain. His was updated. Objective Exam Vital Signs Vital Signs Date Time Temp Pulse Resp B/P (MAP) Pulse Ox O2 Delivery O2 Flow Rate FiO2 08/17/22 11:15 86 14 134/77 (96) 93 Room Air 08/17/22 07:53 37.2 Capillary Refill : Less Than 3 Seconds General Appearance: No Apparent Distress, WD/WN Respiratory: Lungs Clear, No Respiratory Distress Cardiovascular: Regular Rate, Rhythm, No Murmur Gastrointestinal: Normal Bowel Sounds, Soft Extremity: Normal Inspection, Pedal Edema Neurologic/Psychiatric: Alert, Normal Mood/Affect Skin: Normal Color, Warm/Dry Results/Procedures Lab Laboratory Tests 08/16/22 16:35 08/16/22 19:53 08/16/22 21:28 08/17/22 04:40 08/17/22 07:42 Patient resulted labs reviewed. Imaging: Reviewed Imaging Report Assessment/Plan Assessment and Plan Assess & Plan/Chief Complaint T2DM with DKA TIM DKA protocol IV insulin IV fluids Begin Levemir this evening If titrates off drip, discontinue and start sliding scale B TeleICU following Advance diet as tolerated NSTEMI, type II Cardiology following Left heart cath with patent stent and nonobstructive CAD Continue ASA and Plavix Stop Heparin gtt Leukocytosis Likely reactive No evidence of infection Antibiotics not given Monitor symptoms HTN Hold Losartan CAD HLD Continue home meds DVT prophylaxis: Lovenox Critical Care Critically Ill Patient Diagnosis/Problems Diagnosis/Problems (1) DKA (diabetic ketoacidosis) Status: Acute Qualifiers: Diabetes mellitus type: type 2 Diabetes mellitus complication detail: without coma Qualified Codes: E11.10 - Type 2 diabetes mellitus with ketoacidosis without coma (2) Acute kidney injury (nontraumatic) Status: Acute (3) NSTEMI (non-ST elevated myocardial infarction) Status: Acute (4) High anion gap metabolic acidosis Status: Acute (5) Leukocytosis Status: Acute Qualifiers: Leukocytosis type: leukemoid reaction Qualified Codes: D72.823 - Leukemoid reaction (6) HTN (hypertension) Status: Chronic (7) HLD (hyperlipidemia) Status: Chronic (8) CAD (coronary artery disease) Status: Chronic (9) T2DM (type 2 diabetes mellitus) Status: Acute Qualifiers: Diabetes mellitus senior care insulin use: with terminologist use Diabetes mellitus complication status: with ketoacidosis Diabetes mellitus complication detail: without coma Qualified Codes: E11.10 - Type 2 diabetes mellitus with ketoacidosis without coma; Z79.4 - senior care (current) use of insulin DAVE REYES MD Aug 17, 2022 12:00
[2022-08-17 16:13] LABS: POTASSIUM 3.9 MMOL/L (3.6-5.0)
[2022-08-17 16:14] LABS: CALCIUM 7.8 MG/DL (8.5-10.1)
[2022-08-17 16:19] LABS: CREATININE SERUM 1.44 MG/DL (0.60-1.30)
[2022-08-17] MEDS ORDERED: ENOXAPARIN 40 MG/0.4 ML (LOVENOX) SYR SC SCH (21:00)
[2022-08-18] MEDS: 1/2 NS IV SOLUTION 1,000 ML IV SCH ×3 (02:30→10:30)
[2022-08-18 05:04] LABS: BASOPHILS % (AUTO) 0 % (0-10); EOSINOPHILS % (AUTO) 0 % (0-10); HEMATOCRIT 39 % (40-54); HEMOGLOBIN 13.1 g/dL (13.3-17.7); LYMPHOCYTES # (AUTO) 1.1 10^3/uL (1.0-4.0); LYMPHOCYTES % (AUTO) 9 % (12-44); MEAN CORPUSCULAR HEMOGLOBIN 30 pg (25-34); MEAN CORPUSCULAR HGB CONC 33 g/dL (32-36); MEAN CORPUSCULAR VOLUME 90 fL (80-99); MEAN PLATELET VOLUME 8.7 fL (9.0-12.2); MONOCYTES # (AUTO) 0.7 10^3/uL (0.0-1.0); MONOCYTES % (AUTO) 6 % (0-12); NEUTROPHILS # (AUTO) 9.3 10^3/uL (1.8-7.8); NEUTROPHILS % (AUTO) 83 % (42-75); PLATELET COUNT 245 10^3/uL (130-400); WHITE BLOOD COUNT 11.2 10^3/uL (4.3-11.0)
[2022-08-18 05:16] LABS: POTASSIUM 4.4 MMOL/L (3.6-5.0)
[2022-08-18 05:21] LABS: CREATININE SERUM 1.15 MG/DL (0.60-1.30)
[2022-08-18 05:24] LABS: MAGNESIUM 2.2 MG/DL (1.6-2.4)
[2022-08-18] MEDS: inSUlin ASPART (NovoLOG) 1 UNIT/0.01 ML (CHARGE PER UNIT) SQ SCH ×2 (06:20→11:14)
[2022-08-18] MEDS: SENNOSIDES 8.6 MG (SENOKOT) TAB PO SCH (08:11)
[2022-08-18] MEDS: DOCUSATE SODIUM 100 MG (COLACE) CAP PO SCH (08:11)
[2022-08-18] MEDS: ASPIRIN E.C. 81 MG (ECOTRIN) TAB PO SCH (08:12)
[2022-08-18] MEDS ORDERED: CHLORASEPTIC LOZENGE MM PRN (08:15)
[2022-08-18] MEDS ORDERED: CEPACOL SORE THROAT-COUGH LOZENGE MM PRN (08:30)
--- NOTE | 2022-08-18 08:50 | Tele-ICU Progress Note ---
Subjective Date Seen by a Provider: Aug 18, 2022 Time Seen by a Provider: 08:45 Subjective/Events-last exam 72 yo M admitted 08/16 for DKA, known DM1, also TIM and NSTEMI-recent CCL showed 40% in LAD, previous stent, pt eating and drinking, Mccauley catheter is out, last glu 242 on 20 U of Detimeer at night and moderate SS, HCO3 18 with AG 9, eating Cr down from 1.61 to 1.15 Sepsis Event Evaluation Height, Weight, BMI Height: 5'10.00" Weight: 185lbs. 0.0oz. 83.545185wf; 26.32 BMI Method: Exam Exam Patient acknowledged, consented, and participated in this virtual visit which was conducted using real time audio/video Vital Signs Date Time Temp Pulse Resp B/P (MAP) Pulse Ox O2 Delivery O2 Flow Rate FiO2 08/18/22 08:05 37.0 96 20 124/84 (97) 95 Room Air 08/18/22 08:00 96 19 124/84 (97) 94 Room Air 08/18/22 08:00 38.0 08/18/22 07:32 98 08/18/22 07:00 80 19 107/61 (76) 94 Room Air 08/18/22 06:00 76 19 108/74 (89) 95 Room Air 08/18/22 05:00 86 16 129/70 (92) 94 Room Air 08/18/22 04:00 95 Room Air 08/18/22 04:00 92 17 106/59 (72) 92 Room Air 08/18/22 03:56 37.7 08/18/22 03:00 85 14 98/55 (71) 93 Room Air 08/18/22 02:00 82 17 107/59 (79) 92 Room Air 08/18/22 01:00 81 18 124/74 (94) 93 Room Air 08/18/22 01:00 81 08/18/22 00:18 37.0 08/18/22 00:00 81 17 121/74 (91) 90 Room Air 08/17/22 23:59 95 Room Air 08/17/22 23:00 87 17 112/76 (90) 89 Room Air 08/17/22 22:30 106 22 138/78 (99) 92 Room Air 08/17/22 22:00 100 18 170/107 (131) 95 Room Air 08/17/22 21:00 102 17 154/96 (122) 94 Room Air 08/17/22 20:00 37.2 08/17/22 20:00 89 20 129/81 (103) 95 Room Air 08/17/22 20:00 96 Room Air 08/17/22 19:00 90 08/17/22 19:00 90 130/81 (100) 94 Room Air 08/17/22 18:00 102 15 140/86 (104) 97 Room Air 08/17/22 17:00 90 19 136/84 (101) 96 Room Air 08/17/22 16:00 37.0 08/17/22 16:00 64 13 102/66 (78) 96 Room Air 08/17/22 16:00 96 Room Air 08/17/22 15:00 84 18 123/78 (93) 95 Room Air 08/17/22 14:00 85 18 137/89 (105) 97 Room Air 08/17/22 13:00 69 16 100/41 (60) 96 Room Air 08/17/22 12:38 86 08/17/22 12:00 37.0 08/17/22 12:00 80 17 141/79 (99) 94 Room Air 08/17/22 12:00 96 Room Air 08/17/22 11:30 82 14 127/77 (94) 94 Room Air 08/17/22 11:15 86 14 134/77 (96) 93 Room Air 08/17/22 11:00 86 13 131/72 (91) 93 Room Air 08/17/22 10:45 87 129/80 (96) 94 Room Air 08/17/22 09:00 93 23 133/74 (93) 94 Room Air I & O 08/18/22 07:00 Intake Total 2550 ml Output Total 2025 ml Balance 525 ml Height & Weight Height: 5'10.00" Weight: 185lbs. 0.0oz. 83.948850ra; 26.32 BMI Method: General Appearance: No Apparent Distress, WD/WN HEENT: PERRL/EOMI, Pharynx Normal Neck: Normal Inspection, Supple Respiratory: Lungs Clear, No Respiratory Distress Cardiovascular: Regular Rate, Rhythm, No Murmur Capillary Refill: Less Than 3 Seconds Gastrointestinal: normal bowel sounds, non tender, soft Extremity: Normal Inspection, Pedal Edema Neurologic/Psychiatric: Alert, Oriented x3, Normal Mood/Affect Skin: Normal Color, Warm/Dry Results Lab Laboratory Tests 08/16/22 16:35 08/16/22 19:53 08/16/22 21:28 08/17/22 04:40 08/17/22 07:42 08/17/22 15:55 08/18/22 04:40 Assessment/Plan Assessment/Plan resolved DKA, will continue on present insulin TIM-resolved NSTEMI, went to CCL, will continue on statin, Plavix beta jose f Remaining problem is to make sure he has access to short acting insulin, continue on 20 Levimer at night. [facility] Critical Care: Critically Ill Patient Time spent with patient (mins): 30 MOHINI BEY MD Aug 18, 2022 08:50
[2022-08-18] MEDS ORDERED: CLOPIDOGREL 75 MG (PLAVIX) TABLET PO SCH (09:00)
--- NOTE | 2022-08-18 09:01 | Cardiology Progress Note ---
Subjective Date Seen by Provider: Aug 18, 2022 Time Seen by Provider: 08:59 Subjective/Events-last exam Patient was seen at bedside, sitting comfortably, feeling better. Review of Systems General: No Chills, No Night Sweats, No Fatigue, No Malaise, No Appetite, No Other HEENT: No Head Aches, No Visual Changes, No Eye Pain, No Ear Pain, No Dysphasia, No Sinus Congestion, No Post Nasal Drip, No Sore Throat, No Other Pulmonary: No Dyspnea, No Cough, No Pleuritic Chest Pain, No Other Cardiovascular: No: Chest Pain, Palpitations, Orthopnea, Paroxysmal Noc. Dyspnea, Edema, Lt Headedness, Other Objective-Cardiology Exam Last Set of Vital Signs Vital Signs 08/18/22 08:05 Temp 37.0 Pulse 96 Resp 20 B/P (MAP) 124/84 (97) Pulse Ox 95 O2 Delivery Room Air I&O Intake and Output 08/18/22 00:00 Intake Total 3750 ml Output Total 625 ml Balance 3125 ml Intake Oral 1600 ml IV Total 2150 ml Output Urine Total 625 ml Bladder Scan Volume Amount 960 ml # Voids 11 # Bowel Movements 1 General: Alert, Oriented X3, Cooperative HEENT: Atraumatic, PERRLA Neck: Supple, No JVD, No Thyromegaly Lungs: Clear to Auscultation, Normal Air Movement Heart: Regular Rate, Normal S1, Normal S2, No Murmurs Abdomen: Normal Bowel Sounds, Soft, No Tenderness, No Hepatosplenomegaly, No Masses Extremities: No Clubbing, No Cyanosis, No Edema, Normal Pulses, No Tenderness/Swelling Skin: No Rashes, No Breakdown, No Significant Lesion Neuro: Normal Gait, Normal Speech, Strength at 5/5 X4 Ext, Normal Tone, Sensation Intact Psych/Mental Status: Mental Status NL, Mood NL Results Lab Laboratory Tests 08/17/22 15:55 08/18/22 04:40 A/P-Cardiology Admission Diagnosis Non-ST elevation myocardial infarction Coronary artery disease Diabetic ketoacidosis Hypertension Assessment/Plan Non-ST elevation myocardial infarction, had elevation in troponin with minimal EKG changes. Cardiac catheterization carried out on August 17, 2022 showing patent stent in the proximal LAD otherwise mild disease nonobstructive disease with normal left ventricular end-diastolic pressure Most probably type II myocardial infarction Coronary artery disease, history of Promus Premier stent 3.5 x 32 mm to the proximal LAD done 4 to 5 years ago. Patent stent was noted during cardiac cath on August 17, 2022 otherwise mild coronary artery disease Diabetic ketoacidosis. Blood sugar is better. Managed by primary care team Hypertension, monitor blood pressure and restart home medication Hyperlipidemia, continue on statin Acute on chronic renal insufficiency, receiving IV fluids, continue to monitor renal function MIKE DORANTES MD Aug 18, 2022 09:01
--- NOTE | 2022-08-18 10:00 | Discharge Inst-Simple/Standard ---
Discharge Inst-Standard Discharge Medications New, Converted or Re-Newed RX: Transmitted to Pharmacy Patient Instructions/Follow Up Plan of Care/Instructions/FU: Please continue to take your medications as written. Please follow up with your primary care doctor to follow up this hospital stay. Activity as Tolerated: Yes Discharge Diet: ADA Diet Return to The Hospital For: Chest pain, elevated bood sugars, nausea and vomiting, abdominal pain, shortness of breath, fever, weakness, if you feel you are getting worse. CARMELO CANTU MD Aug 18, 2022 10:00 am
[2022-08-18] MEDS ORDERED: INSU100V5 SQ (10:23)
[2022-08-18] MEDS ORDERED: GLUC-160 PO (10:23)
[2022-08-18] MEDS ORDERED: CLOP75TA28 PO (10:23)
[2022-08-18] MEDS ORDERED: LOSA100T57 PO (10:23)
[2022-08-18] MEDS ORDERED: ASPI-1238 PO (10:23)
[2022-08-18] MEDS ORDERED: CHOL400C9 PO (10:23)
[2022-08-18] MEDS ORDERED: ACET-2267 PO (10:23)
[2022-08-18] MEDS ORDERED: INSU100V31 IJ (10:23)
[2022-08-18] MEDS ORDERED: ATOR80TA76 PO (10:23)
[2022-08-18] MEDS ORDERED: MULT-567 PO (10:23)
--- NOTE | 2022-08-18 11:36 | Discharge Summary ---
Diagnosis/Chief Complaint Date of Admission Aug 16, 2022 at 17:55 Date of Discharge Discharge Date: Aug 18, 2022 Admission Diagnosis DKA Primary Care No,Local Physician Discharge Diagnosis (1) DKA (diabetic ketoacidosis) Status: Acute (2) Acute kidney injury (nontraumatic) Status: Acute (3) NSTEMI (non-ST elevated myocardial infarction) Status: Acute (4) High anion gap metabolic acidosis Status: Acute (5) Leukocytosis Status: Acute (6) HTN (hypertension) Status: Chronic (7) HLD (hyperlipidemia) Status: Chronic (8) CAD (coronary artery disease) Status: Chronic (9) T2DM (type 2 diabetes mellitus) Status: Acute Discharge Summary Discharge Physical Exam Allergies: Coded Allergies: Penicillins (Unverified Allergy, Unknown, 08/12/17) oxycodone (Verified Allergy, Unknown, Hives, 08/16/22) Patient states they can take acetaminophen. Vitals & I&Os Vital Signs Date Time Temp Pulse Resp B/P (MAP) Pulse Ox O2 Delivery O2 Flow Rate FiO2 08/18/22 12:35 36.8 88 18 145/87 95 08/18/22 12:00 Room Air General Appearance: No Apparent Distress, WD/WN, Chronically ill Cardiovascular: Regular Rate, Rhythm, No Murmur Gastrointestinal: Normal Bowel Sounds, Soft Neurologic/Psychiatric: Alert, Oriented x3 Hospital Course Patient was admitted to the hospital secondary to DKA. He had been out of his NovoLog so he just been taking his Levemir. He had been attempting to get NovoLog from his pharmacy but his prescription had been delayed through the [facility]. When he presented here his blood sugar was 678. He was admitted to the ICU on an insulin drip. He was found to have a significantly elevated troponin of 9.6. He does have a history of coronary artery disease with stenting to the LAD. Cardiology was consulted and after fluid resuscitation and improvement in his creatinine he went to cardiac cath which revealed a patent stent and small vessel disease. This was managed conservatively without further intervention. His DKA resolved and he was transitioned to basal bolus insulin. He was able to get his NovoLog at a local [facility] and he was discharged home in stable and improved condition to [facility] and his car diologist. Of note at the time of this discharge summary his BMP from August 17 2:42 AM is listed as being drawn on August 16. Lab is currently in the process of fixing this clerical error. Labs (last 24 hrs) Laboratory Tests 08/18/22 11:09: Glucometer 286H Patient resulted labs reviewed. Pending Labs Imaging: Reviewed Imaging Report Discussion & Recommendations Discharge Planning: >30 minutes discharge planning Discharge Home Medications: Active Scripts Active Reported Atorvastatin Calcium 80 Mg Tablet 40 Mg PO HS TAKES OF A 80MG Losartan Potassium 100 Mg Tablet 100 Mg PO DAILY Clopidogrel (Clopidogrel Bisulfate) 75 Mg Tablet 75 Mg PO DAILY Levemir (Insulin Determir) 100 Unit/Ml Soln 20 Units SQ HS Novolin R (Insulin Regular, Human) 100 Unit/Ml Vial 20 Unit IJ PC Aspirin EC (Aspirin) 81 Mg Tablet.dr 81 Mg PO DAILY Glucosamine Complex Tablet (Glucosamine/D3/Boswellia Tanya) 1,500 Mg-400 Unit- 100 Mg Tablet 1 Each PO HS Vitamin D3 (Cholecalciferol (Vitamin D3)) 10 Mcg (400 Unit) Capsule 10 Mcg PO HS Multivitamins (Multivitamin) 1 Each Tablet 1 Each PO 1300 Tylenol Extra Strength (Acetaminophen) 500 Mg Tablet 1,000 Mg PO Q8H PRN Instructions to patient/family Please see electronic discharge instructions given to patient. Problem Qualifiers (1) DKA (diabetic ketoacidosis): Diabetes mellitus type: type 2 Diabetes mellitus complication detail: without coma Qualified Codes: E11.10 - Type 2 diabetes mellitus with ketoacidosis without coma (2) Leukocytosis: Leukocytosis type: leukemoid reaction Qualified Codes: D72.823 - Leukemoid reaction (3) T2DM (type 2 diabetes mellitus): Diabetes mellitus lobsterman insulin use: with mcfp use Diabetes mellitus complication status: with ketoacidosis Diabetes mellitus complication detail: without coma Qualified Codes: E11.10 - Type 2 diabetes mellitus with ketoacidosis without coma; Z79.4 - FDC (current) use of insulin CARMELO CANTU MD Aug 18, 2022 11:36
[2022-08-18] MEDS ORDERED: inSUlin ASPART (NovoLOG) 1 UNIT/0.01 ML (CHARGE PER UNIT) SC SCH (12:00)
[2022-08-18 12:35] VITALS: BP 145/87
== END 2022-08-18 13:00 | disposition home or self-care (01) | DRG 637 ==
LOC: EDUNIT# 16:19 → ER 16:22 → ICU 17:55
PROVIDERS: ADMIT Internal Medicine; ATTEND Internal Medicine
PROC: 4A023N7 Measurement of Cardiac Sampling and Pressure, Left Heart, Percutaneous Approach (ICD-10-PCS; principal; 2022-08-17)
PROC: B2111ZZ Fluoroscopy of Multiple Coronary Arteries using Low Osmolar Contrast (ICD-10-PCS; 2022-08-17)
DX: E11.10 Type 2 diabetes mellitus with ketoacidosis without coma (principal); I21.A1 Myocardial infarction type 2; N17.9 Acute kidney failure, unspecified; E86.0 Dehydration; I12.9 Hypertensive chronic kidney disease with stage 1 through stage 4 chronic kidney disease, or unspecified chronic kidney disease; E11.22 Type 2 diabetes mellitus with diabetic chronic kidney disease; N18.9 Chronic kidney disease, unspecified; I25.10 Atherosclerotic heart disease of native coronary artery without angina pectoris; Z20.822 Contact with and (suspected) exposure to COVID-19; E78.5 Hyperlipidemia, unspecified; Z79.4 Long term (current) use of insulin; Z88.6 Allergy status to analgesic agent; Z88.5 Allergy status to narcotic agent; Z88.0 Allergy status to penicillin; T38.3X6A Underdosing of insulin and oral hypoglycemic [antidiabetic] drugs, initial encounter
CPT/HCPCS: 36415; 71045; 80048; 80053; 81000; 82010; 82947; 83036; 83735; 84100; 84484; 85007; 85025; 85027; 85610; 85730; 86141; 87636; 93005; 93458